=== PATIENT | male | born 1985 | race Caucasian/White ===

== ENCOUNTER 2016-10-16 | Emergency (ER) | payer BC ==
[2016-10-16 00:29] VITALS: BP 125/77; PULSE 98; RESP 22; TEMP 97; O2SAT 99
[2016-10-16] MEDS ORDERED: KETOROLAC TROMETHAMINE 30 MG/ML SOL IM ONE (00:31)
[2016-10-16] MEDS ORDERED: KETOROLAC TROMETHAMINE 30 MG/ML SOL ONE (00:32)
== END 2016-10-16 01:18 | disposition home or self-care (01) ==
LOC: ED
DX: S52.022A Displaced fracture of olecranon process without intraarticular extension of left ulna, initial encounter for closed fracture (principal); V80.018A Animal-rider injured by fall from or being thrown from other animal in noncollision accident, initial encounter
CPT/HCPCS: 29125; 73070; 99284; J1885

== ENCOUNTER 2016-10-20 10:11 | Outpatient (CLI) | payer BC ==
[2016-10-16 00:29] VITALS: O2SAT 99
== END 2016-10-20 10:12 | disposition home or self-care (01) ==
LOC: CONVCARE 10:11
PROVIDERS: ATTEND Orthopaedic Surgery
DX: S52.022D Displaced fracture of olecranon process without intraarticular extension of left ulna, subsequent encounter for closed fracture with routine healing (principal); S46.212D Strain of muscle, fascia and tendon of other parts of biceps, left arm, subsequent encounter
CPT/HCPCS: 73221